=== PATIENT | male | born 1965 | race African-American/Black ===

== ENCOUNTER → 2016-09-13 | Emergency (ER) | payer BC ==
[~2016-09-13] MED LIST: ASPIRIN 81 MG CHEWABLE TABLETS ONE; ASPIRIN 81 MG CHEWABLE TABLETS PO ONE
[2016-09-13 23:28] VITALS: BP 160/106; PULSE 78; TEMP 97.9; BMI 50.2
[2016-09-14 00:21] LABS: MCH 31.3 pg (25.7-33.7); MCHC 32.7 g/dl (32.0-35.9); MEAN CELL VOLUME 95.6 fl (80-96); MEAN PLT VOLUME 8.4 fl (7.5-11.1); NEUTROPHILS 36.6 % (42.8-82.8); PLATELET COUNT 221 K/MM3 (134-434); WHITE BLOOD COUNT 4.6 K/mm3 (4.0-10.0)
[2016-09-14 00:48] LABS: INR 1.08 (0.82-1.09); PROTHROMBIN TIME (PATIENT) 11.9 SEC (9.98-11.88)
[2016-09-14 01:02] LABS: ALBUMIN 3.6 g/dl (3.4-5.0); ANION GAP 10 (8-16); CALCIUM 8.4 mg/dL (8.5-10.1); CO2 27 mmol/L (21-32); GLUCOSE,RANDOM 95 mg/dL (74-106); MAGNESIUM 2.3 mg/dL (1.8-2.4)
[2016-09-14 01:07] LABS: ALK PHOS 118 U/L (45-117); BILIRUBIN,TOTAL 0.6 mg/dL (0.2-1.0); COCKROFT - GAULT 177.19; CREATININE 1.1 mg/dL (0.7-1.3); SGOT/AST 23 U/L (15-37); SGPT/ALT 43 U/L (12-78); TOT PROT 6.9 g/dl (6.4-8.2); TROPONIN I < 0.02 ng/ml (0.00-0.05)
--- NOTE | 2016-09-14 01:46 | PDOC ---
History of Present Illness - General Chief Complaint: Chest Pain Stated Complaint: CHEST PAIN Time Seen by Provider: 09/13/16 23:34 - History of Present Illness Initial Comments: CC: chest discomfort HPI: 51 yo M presents to ED with chest discomfort x 3 days. Patient denies any shortness of breath, difficulty breathing, or radiation of pain to jaw or arm and states that he feels better now but was concerned and wanted to "have it checked out." ROS: as per HPI PE: General: Well-appearing, appropriately dressed, no apparent distress. CV: RRR, S1, S2 Resp: CTAB MSK: No swelling to lower extremities bilaterally. Past History - Past Medical History Allergies/Adverse Reactions: Allergies Allergy/AdvReac Type Severity Reaction Status Date / Time No Known Allergies Allergy Verified 09/13/16 23:28 Home Medications: Ambulatory Orders Diclofenac Sodium [Voltaren] 1 applic TP TID PRN #1 tube 09/14/16 HTN: Yes - Immunization History Immunization Up to Date: Yes - Psycho/Social/Smoking Cessation Hx Suicidal Ideation: No Smoking History: Never smoked Have you smoked in the past 12 months: No Information on smoking cessation initiated: No Hx Alcohol Use: No Drug/Substance Use Hx: No *Physical Exam - Vital Signs Last Vital Signs Temp Pulse Resp BP Pulse Ox 97.9 F 78 18 160/106 97 09/13/16 23:26 09/13/16 23:26 09/13/16 23:26 09/13/16 23:26 09/13/16 23:26 ED Treatment Course - LABORATORY CBC & Chemistry Diagram: 09/14/16 00:05 09/14/16 00:05 - ADDITIONAL ORDERS Additional order review: 09/14/16 00:05 RBC 4.42 MCV 95.6 MCHC 32.7 RDW 14.0 MPV 8.4 Neutrophils % 36.6 L Lymphocytes % 46.7 H Monocytes % 11.7 H Eosinophils % 4.0 Basophils % 1.0 - RADIOLOGY Radiology Studies Ordered: Category Date Time Status CHEST PA & LAT [RAD] Stat Radiology 09/14/16 00:38 Completed - Medications Given in the ED: ED Medications Discontinued Medications Generic Name Dose Route Start Last Admin Trade Name Freq PRN Reason Stop Dose Admin Aspirin 162 mg 09/13/16 23:34 09/14/16 00:11 Asa - PO 09/13/16 23:35 162 mg ONCE ONE Administration Medical Decision Making - Medical Decision Making 51 yo M with no significant PMH presents to ED with chest discomfort x 3 days that has now resolved. EKG, CXR Labs Labs, EKG, CXR unremarkable. Likely musculoskeletal pain, will d/c with Voltaren gel. Advised patient to use med as prescribed and f/u with cardiology. Advised patient of signs and symptoms for return to ER; patient verbalized understanding and agrees to plan. *DC/Admit/Observation/Transfer Diagnosis at time of Disposition: Chest pain, musculoskeletal - Discharge Dispostion Disposition: HOME Condition at time of disposition: Stable Admit: No - Prescriptions Prescriptions: Diclofenac Sodium [Voltaren] 1 applic TP TID PRN #1 tube PRN Reason: Pain - Referrals Referrals: Juventino Lozada [Primary Care Provider] - Shay Benz MD [Staff Physician] - - Patient Instructions Printed Discharge Instructions: DI for Chest Pain Additional Instructions: Please use medication as prescribed and follow up with your primary care doctor. If you experience any shortness of breath, palpitations, sweating, dizziness, new chest pain, or any new or worsening symptoms, please return to the ER immediately.
--- NOTE | 2016-09-14 11:04 | EKG ---
Test Reason : Blood Pressure : / mmHG Vent. Rate : 074 BPM Atrial Rate : 074 BPM P-R Int : 178 ms QRS Dur : 092 ms QT Int : 398 ms P-R-T Axes : 034 -13 020 degrees QTc Int : 441 ms NORMAL SINUS RHYTHM NORMAL ECG NO PREVIOUS ECGS AVAILABLE Confirmed by MOISE LOVETT MD ([id number]) on 09/14/2016 11:03:56 AM Referred By: Confirmed By:MOISE LOVETT MD
== END | disposition home or self-care (01) ==
LOC: JER 23:16
DX: M79.1 Myalgia (principal); I10 Essential (primary) hypertension
CPT/HCPCS: 36415; 71020-TC; 80053; 82550; 82553; 83735; 84484; 85025; 85610; 93005; 93010; 99284-25

== ENCOUNTER 2019-04-21 03:10 | Emergency (ER) | payer SELFPAY ==
--- NOTE | 2019-04-21 04:12 | PDOC ---
Attending Attestation - Resident Resident Name: Gricelda Turner - ED Attending Attestation I have performed the following: I have examined & evaluated the patient, The case was reviewed & discussed with the resident, I agree w/resident's findings & plan
--- NOTE | 2019-04-21 04:25 | PDOC ---
History of Present Illness - General Chief Complaint: Pain Stated Complaint: PAIN Time Seen by Provider: 04/21/19 04:04 History Source: Patient - History of Present Illness Initial Comments: 04/21/19 04:16 53 year old male c/o right lower wisdom tooth infection and pain for 1 day. patient completed a dose of clindamycin last week. patient did not follow up with dentist and has an appointment this week. denies fever/ chills PMHX: hypertension 04/21/19 04:18 Past History - Past Medical History Allergies/Adverse Reactions: Allergies Allergy/AdvReac Type Severity Reaction Status Date / Time No Known Allergies Allergy Verified 09/13/16 23:28 Home Medications: Ambulatory Orders Diclofenac Sodium [Voltaren] 1 applic TP TID PRN #1 tube 09/14/16 Acetaminophen W/ Codeine #3 [Tylenol # 3 -] 1 tab PO Q6H PRN #5 tablet MDD 4 Amoxicillin/Potassium Clav [Augmentin 875-125 Tablet] 1 each PO BID #20 tablet 04/21/19 Ibuprofen 600 mg PO QID PRN #20 tablet 04/21/19 HTN: Yes - Immunization History Immunization Up to Date: Yes - Psycho Social/Smoking Cessation Hx Smoking History: Never smoked Have you smoked in the past 12 months: No Hx Alcohol Use: No Drug/Substance Use Hx: No Review of Systems - Review of Systems HEENTM: Yes: Dental Problems *Physical Exam - Physical Exam General Appearance: Yes: Appropriately Dressed HEENT: positive: Other (right lower molar multiple tooth decay lower gum swollen. no trismus) Neck: positive: Supple. negative: Lymphadenopathy (R), Lymphadenopathy (L) Medical Decision Making - Medical Decision Making 04/21/19 04:19 A: dental infection P: augmentin pain dental follow up outpatient Discharge - Discharge Information Problems reviewed: Yes Clinical Impression/Diagnosis: Infected dental caries Disposition: HOME - Additional Discharge Information Prescriptions: Acetaminophen W/ Codeine #3 [Tylenol # 3 -] 1 tab PO Q6H PRN #5 tablet MDD 4 PRN Reason: Moderate Pain Amoxicillin/Potassium Clav [Augmentin 875-125 Tablet] 1 each PO BID #20 tablet Ibuprofen 600 mg PO QID PRN #20 tablet PRN Reason: Pain - Follow up/Referral Referrals: Juventino Lozada [Primary Care Provider] - - Patient Discharge Instructions Patient Printed Discharge Instructions: Tooth Abscess Additional Instructions: take ibuprofen every 6 hours as needed on pain take augmentin as prescribed take tylenol #3 for moderate follow up with your dentist as soon as possible. - Post Discharge Activity Work/Back to School Note: Back to Work
[2019-04-21 04:26] VITALS: BMI 52.4
--- NOTE | 2019-04-21 04:37 | PDOC ---
*Physical Exam - Vital Signs Last Vital Signs Temp Pulse Resp BP Pulse Ox 98.1 F 81 16 136/97 97 04/21/19 03:30 04/21/19 03:30 04/21/19 03:30 04/21/19 03:30 04/21/19 03:30 Medical Decision Making - Medical Decision Making 04/21/19 04:37 Patient seen by the advanced practice provider under my direct supervision. Ancillary testing reviewed as necessary. I agree with plan as outlined by the advanced practice provider. Discharge - Discharge Information Problems reviewed: Yes Clinical Impression/Diagnosis: Infected dental caries Condition: Fair Disposition: HOME - Additional Discharge Information Prescriptions: Acetaminophen W/ Codeine #3 [Tylenol # 3 -] 1 tab PO Q6H PRN #5 tablet MDD 4 PRN Reason: Moderate Pain Amoxicillin/Potassium Clav [Augmentin 875-125 Tablet] 1 each PO BID #20 tablet Ibuprofen 600 mg PO QID PRN #20 tablet PRN Reason: Pain - Follow up/Referral Referrals: Juventino Lozada [Primary Care Provider] - - Patient Discharge Instructions Patient Printed Discharge Instructions: Tooth Abscess Additional Instructions: take ibuprofen every 6 hours as needed on pain take augmentin as prescribed take tylenol #3 for moderate follow up with your dentist as soon as possible. - Post Discharge Activity Work/Back to School Note: Back to Work
[2019-04-21 06:43] VITALS: BP 138/95; PULSE 76; TEMP 97.1
== END 2019-04-21 05:55 | disposition home or self-care (01) ==
LOC: JER 03:10
DX: K08.89 Other specified disorders of teeth and supporting structures (principal); I10 Essential (primary) hypertension
CPT/HCPCS: 99282-25